=== PATIENT | female | born 1985 | race Caucasian/White ===

== ENCOUNTER 2017-05-25 14:54 | Emergency (ER) | payer OTHER ==
[~2017-05-25] VITALS: Ht 160 cm; Wt 71.8 kg
[2017-05-25] MEDS ORDERED: VALIUM5 MG PO (18:18)
[2017-05-25] MEDS ORDERED: NORCO 5/3251 TABLET PO (18:18)
[2017-05-25 18:27] VITALS: BP 127/66
[2017-05-25 18:29] LABS: ADD MIUA? NO; BILIRUBIN NEGATIVE; BLOOD NEGATIVE; COLOR STRAW ((YELLOW)); GLUCOSE (STRIP) NEGATIVE; KETONES NEGATIVE; LEUKOCYTES NEGATIVE; NITRITE NEGATIVE; PROTEIN (STRIP) NEGATIVE; SPECIFIC GRAVITY 1.012 (1.000-1.030); UROBILINOGEN 0.2 MG/DL (0.2-1.0)
== END 2017-05-25 18:31 | disposition home or self-care (01) ==
LOC: EME 14:54
PROVIDERS: Physician Assistant
DX: S39.012A Strain of muscle, fascia and tendon of lower back, initial encounter (principal); Y99.0 Civilian activity done for income or pay; Y93.F2 Activity, caregiving, lifting; X50.0XXA Overexertion from strenuous movement or load, initial encounter; Z88.2 Allergy status to sulfonamides
CPT/HCPCS: 81003; 99281; 99284; J1885

== ENCOUNTER 2017-08-19 15:35 | Emergency (ER) | payer OTHER ==
[~2017-08-19] VITALS: Ht 160 cm; Wt 70.4 kg
[~2017-08-19 15:35] MED LIST: NORCO 5/3251 TABLET PO; VALIUM5 MG PO
[2017-08-19 19:26] LABS: INTERNAL CONTROL VALID? YES
[2017-08-19] MEDS ORDERED: METHOCARBAMOL750 MG PO (19:34)
[2017-08-19] MEDS ORDERED: MOTRIN600 MG PO (19:35)
[2017-08-19 19:51] VITALS: BP 139/99
== END 2017-08-19 19:53 | disposition home or self-care (01) ==
LOC: EME 15:35
PROVIDERS: Emergency Medicine
DX: S06.0X0A Concussion without loss of consciousness, initial encounter (principal); S16.1XXA Strain of muscle, fascia and tendon at neck level, initial encounter; S39.012A Strain of muscle, fascia and tendon of lower back, initial encounter; V49.40XA Driver injured in collision with unspecified motor vehicles in traffic accident, initial encounter; F41.9 Anxiety disorder, unspecified; Z88.2 Allergy status to sulfonamides
CPT/HCPCS: 84703; 99281; 99282